=== PATIENT | female | born 1980 | race Caucasian/White ===

== ENCOUNTER 2017-03-31 04:59 | Emergency (ER) | payer MEDICAID ==
[~2017-03-31] VITALS: Ht 175.3 cm; Wt 90.7 kg
--- NOTE | 2017-03-31 05:21 | ED Upper Extremity ---
General Chief Complaint: Upper Extremity Stated Complaint: LEFT MIDDLE FINGER INJURY Source: patient History of Present Illness Time seen by provider: 05:15 Initial Comments PT STATES SHE GOT LEFT MIDDLE FINGER CAUGHT IN A FOLDING TABLE OF AN RV JUST PRIOR TO ARRIVAL NO OTHER INJURIES NO PRIOR INJURIES TO THIS FINGER NO PARESTHESIAS OR MOTOR DEFICITS PT IS RIGHT HANDED Allergies and Home Medications Allergies Coded Allergies: No Known Drug Allergies (Unverified , 03/31/17) Constitutional: no symptoms reported Musculoskeletal: see HPI Skin: other (ABRASION TO FINGER TIP OF LEFT MIDDLE FINGER, AROUND DISTAL EDGE OF NAIL) Psychiatric/Neurological: No Symptoms Reported Past Dicmamm-Wydxpk-Muqjym Hx Patient Social History Recent Foreign Travel: No Contact w/Someone Who Travel: No Immunizations Up To Date Tetanus Booster (TDap): More than 5yrs Physical Exam Vital Signs Vital Sign - Last 12Hours 03/31/17 05:05 Temp 97.1 Pulse 72 Resp 16 B/P (MAP) 133/85 Pulse Ox 97 O2 Delivery Room Air Capillary Refill : General Appearance: WD/WN, no apparent distress, other (FILTHY, HANDS BLACK WITH DIRT) Hand: Left (MIDDLE FINGER TIP), abrasions (TO DISTAL EDGE OF NAIL/FINGERTIP), bone tenderness, soft tissue tenderness Neurologic/Psychiatric: patient service rep II-XII nml as tested, no motor/sensory deficits, alert, normal mood/affect, oriented x 3 Skin: normal color, warm/dry Progress/Results/Core Measures Results/Orders My Orders Orders - JUDITH JOHNSON DO Finger(S) (03/31/17 05:15) Dipht,Pertuss(Acell),Tet Adult (Boostrix (03/31/17 05:30) Vital Signs/I&O Vital Sign - Last 12Hours 03/31/17 05:05 Temp 97.1 Pulse 72 Resp 16 B/P (MAP) 133/85 Pulse Ox 97 O2 Delivery Room Air Diagnostic Imaging Comments XRAYS LEFT MIDDLE FINGER--NO ACUTE PROCESS, PENDING RADIOLOGIST REVIEW Reviewed: Reviewed by Me Departure Impression Impression: Primary Impression: Contusion of left middle finger Additional Impressions: Veodwyydxd-uwshqueuc-dvvcmlr (DPT) vaccination administered at current visit Abrasion Disposition: 01 HOME, SELF-CARE Condition: Stable Departure-Patient Inst. Referrals: NO,LOCAL PHYSICIAN (PCP/Family) Primary Care Physician Patient Instructions: Contusion (DC), Skin Abrasions (DC), Wound Care (DC) Add. Discharge Instructions: TYLENOL AND MOTRIN NEEDED FOR PAIN CLEAN 2-3 TIMES A DAY WITH ANTIBACTERIAL SOAP AND WATER, APPLY TRIPLE ANTIBIOTIC AND FRESH DRESSING 2-3 TIMES A DAY All discharge instructions reviewed with patient and/or family. Voiced understanding. JUDITH JOHNSON DO Mar 31, 2017 05:21
[2017-03-31] MEDS ORDERED: TETANUS,DIPTH,PERTUSS P/F (BOOSTRIX) 0.5 ML VIAL IM ONE (05:30)
[2017-03-31 06:06] VITALS: BP 133/85
--- NOTE | 2017-03-31 06:12 | Diagnostic Imaging Report ---
FINGER(S) COMPARISON: None available. INDICATION: Smashed finger. TECHNIQUE: PA, oblique and lateral views of the left long finger. FINDINGS: No fracture or traumatic malalignment. No radiopaque foreign body. Joint spaces are well-maintained. IMPRESSION: 1. No acute fracture or malalignment. Dictated by: Dictated on workstation # [id number]
== END 2017-03-31 06:06 | disposition home or self-care (01) ==
LOC: ER 05:04
DX: S60.032A Contusion of left middle finger without damage to nail, initial encounter (principal); Z23 Encounter for immunization; W23.1XXA Caught, crushed, jammed, or pinched between stationary objects, initial encounter
CPT/HCPCS: 73140; 90471; 90715; 99282